=== PATIENT | female | born 1960 | race Caucasian/White ===

== ENCOUNTER → 2017-05-05 | Outpatient (CLI) | payer BC, OTHER ==
--- NOTE | 2017-05-05 12:52 | RAD ---
DATE: 05/05/2017 EXAM: BREAST LEFT, MAMMO LAYO DIAG LT HISTORY: 6 month follow-up of nodule in left breast. COMPARISON: 11/07/2016 and 11/03/2016 This study was interpreted with the benefit of Computerized Aided Detection (CAD). The left breast parenchyma is heterogeneously dense, which could reduce sensitivity of mammography. Breast parenchyma level C. FINDINGS: Digital MLO and CC is seen along with true lateral and two exaggerated craniocaudal digital mammograms of the left breast were obtained. Additionally digital breast tomosynthesis images of the left breast in the MLO and CC projections were performed. Comparison studies are dated 11/03/2016 and 11/07/2016. The small nodular density within the posterior aspect of the left breast seen on previous examinations is not visualized on today's study. An oval-shaped nodule is seen within the posterior central aspect the left breast. This does not appear significantly changed. A real-time ultrasound examination of the of the left breast at the 11:00 position and within the posterior aspect of the upper quadrant of the left breast was performed. Multiple images were obtained. Comparison is made to the patient's diagnostic mammogram performed earlier today. Additional comparison is made to patient's previous left breast ultrasound dated 10/28/2016. Within the left breast at the 11:00 position and oval-shaped anechoic structure is seen which measures 8 mm in greatest diameter.. It is consistent with a simple cyst and corresponds to the nodule seen on the patient's mammogram from earlier today. It has increased in size slightly since the previous examination where it measured 6 mm in greatest diameter. No additional abnormality is seen within the visualized portions of the left breast. I would recharacterize the patient's mammograms as a BI-RADS Category 2 benign findings with a recommendation for routine yearly screening mammography for follow-up. IMPRESSION: BI-RADS Category 2 benign findings. There is no mammographic evidence of malignancy. Routine yearly screening mammography is recommended for follow-up. BI-RADS CATEGORY: 2 BENIGN FINDING(S) RECOMMENDED FOLLOW-UP: 12M 12 MONTH FOLLOW-UP PQRS compliance statement: Patient information was entered into a reminder system with a target due date 11/03/2017 for the next mammogram. Mammography is a sensitive method for finding small breast cancers, but it does not detect them all and is not a substitute for careful clinical examination. A negative mammogram does not negate a clinically suspicious finding and should not result in delay in biopsying a clinically suspicious abnormality. "Our facility is accredited by the [employer] Mammography Program."
== END | disposition home or self-care (01) ==
LOC: MAMMO 09:04
PROVIDERS: ATTEND Nurse Practitioner
DX: N63 Unspecified lump in breast (principal)
CPT/HCPCS: 76641; G0206; G0279; 77061; 77065

== ENCOUNTER → 2018-05-18 | Outpatient (CLI) | payer OTHER ==
--- NOTE | 2018-05-18 11:00 | RAD ---
DATE: 05/18/2018 EXAM: DIGITAL SCREEN BILAT W/CAD HISTORY: Routine screening COMPARISON: 05/05/2017, 11/03/2016 This study was interpreted with the benefit of Computerized Aided Detection (CAD). The breast parenchyma is heterogeneously dense, which could reduce sensitivity of mammography. Breast parenchyma level C. FINDINGS: No new or enlarging breast densities are seen. Benign type calcifications are present. No suspicious microcalcifications have developed. IMPRESSION: Stable mammograms without evidence of malignancy. BI-RADS CATEGORY: 2 BENIGN FINDING(S) RECOMMENDED FOLLOW-UP: 12M 12 MONTH FOLLOW-UP PQRS compliance statement: Patient information was entered into a reminder system with a target due date for the next mammogram. Mammography is a sensitive method for finding small breast cancers, but it does not detect them all and is not a substitute for careful clinical examination. A negative mammogram does not negate a clinically suspicious finding and should not result in delay in biopsying a clinically suspicious abnormality. "Our facility is accredited by the [employer] Mammography Program."
== END | disposition home or self-care (01) ==
LOC: MAMMO 09:17
DX: Z12.31 Encounter for screening mammogram for malignant neoplasm of breast (principal)
CPT/HCPCS: 77067

== ENCOUNTER → 2021-02-04 | Outpatient (CLI) | payer OTHER ==
--- NOTE | 2021-02-04 12:27 | RAD ---
DATE: February 04, 2021 EXAM: DIGITAL SCREEN BILAT W/CAD HISTORY: Screening study. COMPARISON: 2018 This study was interpreted with the benefit of Computerized Aided Detection (CAD). FINDINGS: Breast Density: HETERO The breast parenchyma is heterogenously dense, which could reduce sensitivity of mammography. Breast parenchyma level C.. There are no dominant suspicious masses, suspicious microcalcifications or evidence of architectural distortion. Nodule of the lateral aspect of the right breast anteriorly is stable. IMPRESSION: No mammographic indicators for malignancy. BI-RADS CATEGORY: 2 BENIGN FINDING RECOMMENDED FOLLOW-UP: 12M 12 MONTH FOLLOW-UP PQRS compliance statement: Patient information was entered into a reminder system with a target due date February 05, 2022 for the next mammogram. Mammography is a sensitive method for finding small breast cancers, but it does not detect them all and is not a substitute for careful clinical examination. A negative mammogram does not negate a clinically suspicious finding and should not result in delay in biopsying a clinically suspicious abnormality. "Our facility is accredited by the [employer] Mammography [employer]." The patient's breast density may affect the ability of mammography to detect breast cancer. There are 4 categories of breast density, A, B, C and D. Breast density A means that most of the breast tissue is replaced with adipose tissue and therefore is not dense. Breast density B means that the breast tissue is mildly dense and scattered. Breast density C means that the breast tissue is heterogeneously dense. Breast density D means that the breast tissue is very dense. Breast densities especially C and D may decrease the sensitivity of mammography to detect breast cancer. Therefore, the patient may benefit from 3-D breast mammography (3D breast tomography) as a part of their screening mammogram. Insurance may or may not pay for this additional imaging. The patient's breast density based on today's mammogram is category C.
== END ==
LOC: MAMMO 10:31
PROVIDERS: ATTEND Nurse Practitioner Family
DX: Z12.31 Encounter for screening mammogram for malignant neoplasm of breast (principal)
CPT/HCPCS: 77067

== ENCOUNTER 2021-04-05 12:34 | Emergency (ER) | payer BC, OTHER ==
[~2021-04-05] VITALS: Ht 165.1 cm; Wt 110.3 kg
--- NOTE | 2021-04-05 13:05 | EKG ---
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
--- NOTE | 2021-04-05 13:11 | RAD ---
EXAM: Chest, single view. HISTORY: Chest pain. COMPARISON: None. FINDINGS: A frontal view of the chest is obtained. There is no infiltrate, pleural effusion or pneumo thorax. There is a prominent cardiac silhouette. IMPRESSION: No acute pulmonary finding. Electronically signed by: Bella Mukherjee MD (04/05/2021 1:09 PM) [id number]
[2021-04-05 13:31] LABS: BASO % 1 % (0-3); EOS # 0.2 x10^3/uL (0.0-0.7); EOS % 4 % (0-3); HEMATOCRIT 40.6 % (36.0-47.0); HEMOGLOBIN 13.5 g/dL (12.0-15.5); LYMPH # 2.2 x10^3/uL (1.0-4.8); LYMPH % 38 % (24-48); MEAN CORPUSCULAR HEMOGLOBIN 29 pg (25-35); MEAN CORPUSCULAR HGB CONC 33 g/dL (31-37); MEAN CORPUSCULAR VOLUME 87 fL (79-100); MONO # 0.4 x10^3/uL (0.0-1.1); MONO % 6 % (0-9); NEUT # 2.9 x10^3uL (1.8-7.7); NEUT % 51 % (31-73); PLATELET COUNT 300 x10^3/uL (140-400); RED BLOOD COUNT 4.65 x10^6/uL (3.50-5.40); RED CELL DISTRIBUTION WIDTH 14.7 % (11.5-14.5); WHITE BLOOD COUNT 5.7 x10^3/uL (4.0-11.0)
[2021-04-05 13:44] LABS: CALCIUM 8.6 mg/dL (8.5-10.1); CREATININE 0.8 mg/dL (0.6-1.0); GFR 73.7; POTASSIUM 4.2 mmol/L (3.5-5.1)
[2021-04-05 13:54] LABS: BILIRUBIN,URINE NEG (NEG); CLARITY,URINE CLEAR; COLOR,URINE STRAW; GLUCOSE,URINE NEG (NEG); NITRITE,URINE NEG (NEG); UROBILINOGEN,URINE 0.2 mg/dL (0.2 mg/dL)
[2021-04-05 13:55] LABS: BACTERIA,URINE 0 /HPF (0-FEW); RBC,URINE RARE /HPF (0-2); WBC,URINE 0 /HPF (0-4)
[2021-04-05 13:57] LABS: ALBUMIN 3.4 g/dL (3.4-5.0); ALBUMIN/GLOBULIN RATIO 1.1 (1.0-1.7); TOTAL BILIRUBIN 0.2 mg/dL (0.2-1.0); TOTAL PROTEIN 6.4 g/dL (6.4-8.2)
[2021-04-05] MEDS ORDERED: PROCHLORPERAZINE 10 MG/2 ML VIAL. IV ONE (14:00)
[2021-04-05] MEDS ORDERED: DEXAMETHASONE SOD PHOS 10 MG/ML VIAL. IVP ONE (14:00)
[2021-04-05] MEDS ORDERED: diphenhydrAMINE HCL 25 MG CAPSULE PO ONE (14:00)
[2021-04-05] MEDS ORDERED: IV NORMAL SALINE 1,000ML 1,000 ML IV ONE (14:00)
--- NOTE | 2021-04-05 14:09 | RAD ---
Exam performed: CT scan of the head without contrast. Date of Service: 04/05/2021. Comparison: None available. Clinical History: Headache and blurred vision. Technique: Helical acquisitions are obtained from the foramen magnum to the vertex without intravenou s administration of contrast. Findings: The ventricles are midline without evidence of dilatation. Normal casillas-white differentiation is maint ained. There is no extra axial fluid collection, intraparenchymal hemorrhage or mass lesion. The vi sualized portions of the orbits, paranasal sinuses and the mastoid air cells appear clear. The travis rium is intact. Impression: 1. No acute intracranial process detected. PQRS Compliance Statement: One or more of the following individualized dose reduction techniques were utilized for this examinat ion: 1. Automated exposure control 2. Adjustment of the mA and/or kV according to patient size 3. Use of iterative reconstruction technique Electronically signed by: Sumaya Aiken MD (04/05/2021 2:07 PM) [facility]
[2021-04-05 15:05] VITALS: BP 147/83
--- NOTE | 2021-04-05 15:28 | PHYS DOC ---
Past History Past Surgical History: Appendectomy, Cholecystectomy, , Hysterectomy Additional Smoking Information: 1/2 PACK/DAY Alcohol Use: None Adult General Chief Complaint Chief Complaint: CHEST PAIN HPI HPI Patient is a 60-year-old female who presents to the emergency room concerned about headache. Patient states that she started getting some blurred vision earlier today. She then had some butterfly feelings in her chest with some chest tightness. She denies any shortness of breath or chest pain with this episode. She denies any current nausea or vomiting. She does not have any syncope. She states that she now has a headache behind her left eye that radiates to the back of her head. She has some lightheadedness. She does have a history of migraines but states this does feel different. She denies any difficulty with walking. She tried to see her primary care physician who sent her here. Review of Systems Review of Systems Complete ROS is negative unless otherwise documented in HPI Current Medications Current Medications Current Medications Medications (Trade) Dose Ordered Sig/Rakesh Start Time Stop Time Status Last Admin Dose Admin Dexamethasone Sodium Phosphate (Decadron) 10 mg 1X ONCE 04/05/21 14:00 04/05/21 14:01 DC 04/05/21 14:04 10 MG Diphenhydramine HCl (Benadryl) 25 mg 1X ONCE 04/05/21 14:00 04/05/21 14:01 DC 04/05/21 14:08 25 MG Prochlorperazine Edisylate (Compazine) 10 mg 1X ONCE 04/05/21 14:00 04/05/21 14:01 DC 04/05/21 14:07 10 MG Sodium Chloride 1,000 ml @ 1,000 mls/hr 1X ONCE 04/05/21 14:00 04/05/21 14:59 DC 04/05/21 14:02 1,000 MLS/HR Allergies Allergies Allergies Coded Allergies Type Severity Reaction Last Updated Verified Latex, Natural Rubber Allergy Unknown 04/05/21 Yes erythromycin base Allergy Unknown 04/05/21 Yes Physical Exam Physical Exam General: Awake, alert, NAD. Well Nourished, well hydrated. Cooperative HEENT: Atraumatic, EOMI, PERRL, airway patent, moist oral mucosa Neck: Supple, trachea midline Respiratory: CTA bilaterally, normal effort, no wheezing/crackles CV: RRR, no murmur, cap refill <2 GI: Soft, nondistended, nontender, no masses MSK: No obvious deformities Skin: Warm, dry, intact Neuro: A&O x3, speech NL, 5/5 strength in BUE/BLE distally and proximally, CN 2- 12 intact, cerebellar testing normal Psych: Normal affect, normal mood, not suicidal or homicidal Current Patient Data Vital Signs Vital Signs Date Time Temp Pulse Resp B/P (MAP) Pulse Ox O2 Delivery O2 Flow Rate FiO2 04/05/21 13:38 77 20 128/77 (94) 94 Room Air 04/05/21 12:35 98.6 Lab Results Laboratory Tests Test 04/05/21 13:05 04/05/21 13:25 White Blood Count 5.7 x10^3/uL (4.0-11.0) Red Blood Count 4.65 x10^6/uL (3.50-5.40) Hemoglobin 13.5 g/dL (12.0-15.5) Hematocrit 40.6 % (36.0-47.0) Mean Corpuscular Volume 87 fL (79-100) Mean Corpuscular Hemoglobin 29 pg (25-35) Mean Corpuscular Hemoglobin Concent 33 g/dL (31-37) Red Cell Distribution Width 14.7 % (11.5-14.5) H Platelet Count 300 x10^3/uL (140-400) Neutrophils (%) (Auto) 51 % (31-73) Lymphocytes (%) (Auto) 38 % (24-48) Monocytes (%) (Auto) 6 % (0-9) Eosinophils (%) (Auto) 4 % (0-3) H Basophils (%) (Auto) 1 % (0-3) Neutrophils # (Auto) 2.9 x10^3uL (1.8-7.7) Lymphocytes # (Auto) 2.2 x10^3/uL (1.0-4.8) Monocytes # (Auto) 0.4 x10^3/uL (0.0-1.1) Eosinophils # (Auto) 0.2 x10^3/uL (0.0-0.7) Basophils # (Auto) 0.0 x10^3/uL (0.0-0.2) Sodium Level 142 mmol/L (136-145) Potassium Level 4.2 mmol/L (3.5-5.1) Chloride Level 106 mmol/L (98-107) Carbon Dioxide Level 26 mmol/L (21-32) Anion Gap 10 (6-14) Blood Urea Nitrogen 9 mg/dL (7-20) Creatinine 0.8 mg/dL (0.6-1.0) Estimated GFR (Cockcroft-Gault) 73.7 BUN/Creatinine Ratio 11 (6-20) Glucose Level 168 mg/dL (70-99) H Calcium Level 8.6 mg/dL (8.5-10.1) Total Bilirubin 0.2 mg/dL (0.2-1.0) Aspartate Amino Transferase (AST) 20 U/L (15-37) Alanine Aminotransferase (ALT) 35 U/L (14-59) Alkaline Phosphatase 132 U/L (46-116) H Troponin I Quantitative < 0.017 ng/mL (0-0.055) Total Protein 6.4 g/dL (6.4-8.2) Albumin 3.4 g/dL (3.4-5.0) Albumin/Globulin Ratio 1.1 (1.0-1.7) Urine Collection Type Unknown Urine Color Straw Urine Clarity Clear Urine pH 5.5 Urine Specific [place] <=1.005 Urine Protein Neg (NEG-TRACE) Urine Glucose (UA) Neg mg/dL (NEG) Urine Ketones (Stick) Neg mg/dL (NEG) Urine Blood Trace (NEG) Urine Nitrite Neg (NEG) Urine Bilirubin Neg (NEG) Urine Urobilinogen Dipstick 0.2 mg/dL (0.2 mg/dL) Urine Leukocyte Esterase Neg (NEG) Urine RBC Rare /HPF (0-2) Urine WBC 0 /HPF (0-4) Urine Bacteria 0 /HPF (0-FEW) EKG EKG [] Radiology/Procedures Radiology/Procedures [] Heart Score C/O Chest Pain: N/A Risk Factors: Risk Factors: DM, Current or recent (<one month) smoker, HTN, HLP, family history of CAD, obesity. Risk Scores: Risk Factors: DM, Current or recent (<one month) smoker, HTN, HLP, family history of CAD, obesity. Course & Med Decision Making Course & Med Decision Making Pertinent Labs and Imaging studies reviewed. (See chart for details) Patient is a 60-year-old female presents to the emergency room with multiple concerns. Patient symptoms are most consistent with an atypical migraine. She has had blurred vision and migraines in the past. We will treat her symptomatically. Work-up will also be done to rule out any signs of arrhythmia or ischemia. EKG is unremarkable. Lab work is normal. Chest x-ray is normal. Patient feels completely back to normal after migraine cocktail. Patient's test results and vitals while in the ED were fully reviewed and discussed with the patient. Patient is stable and at this time does not need admission to the hospital. We have discussed strict return precautions and the importance of following up with their Primary Care Physician. Patient stated understanding and was given an opportunity to ask any questions. Patient is in agreement with plan. Dragon Disclaimer Dragon Disclaimer This electronic medical record was generated, in whole or in part, using a voice recognition dictation system. Departure Departure: Impression: Primary Impression: Migraine Additional Impression: Palpitations Disposition: HOME / SELF CARE / HOMELESS Condition: STABLE Referrals: DAYTON CANTRELL [employer]ET[facility] SPECIALIST (PCP) Patient Instructions: Migraine Headache Problem Qualifiers JAYDON MOLINA MD Apr 05, 2021 15:28
== END 2021-04-05 15:30 | disposition home or self-care (01) ==
LOC: ER 12:34
DX: G43.909 Migraine, unspecified, not intractable, without status migrainosus (principal); R00.2 Palpitations; R07.89 Other chest pain; R42 Dizziness and giddiness; F17.200 Nicotine dependence, unspecified, uncomplicated; Z91.040 Latex allergy status; Z88.1 Allergy status to other antibiotic agents
CPT/HCPCS: 36415; 70450; 71045; 80053; 81001; 84484; 85025; 93005; 96361; 96374; 96375; 99285; J0780; J1100; J7030; Q0163

== ENCOUNTER 2021-04-09 09:42 | Emergency (ER) | payer BC ==
[~2021-04-09] VITALS: Ht 165.1 cm; Wt 103.2 kg
[2021-04-09] MEDS ORDERED: IV NORMAL SALINE 1,000ML 1,000 ML IV ONE (10:00)
--- NOTE | 2021-04-09 10:06 | PHYS DOC ---
Past History Additional Past Medical Histor: TBI; "deep brain seizures" Past Surgical History: Appendectomy, Cholecystectomy, , Hysterectomy, Oophorectomy Alcohol Use: None General Adult EDM: Chief Complaint: DIZZY/LIGHT HEADED HPI: HPI: 60-year-old female presents with dizziness. The patient was seen in the emergency room a couple days ago with a similar episode. She was sitting at work working in her monitor when she started having blurry vision followed by a stabbing headache of moderate to severe intensity in the middle of the top of her head. The patient has a history of headaches due to TBI. She is treated with migraine pain medications but this is for deep brain seizures. She was taken off seizure medicine about 10 years ago. Prior to these most recent 2 episodes she has not had a headache like this in a long time. She denies nausea or vomiting. She has some left-sided abdominal pain. She has irritable bowel syndrome so she goes between diarrhea and constipation frequently. No big changes in this regard. Prior to her dizziness today, she was feeling fine. She did not have any other symptoms until the vision change. Review of Systems: Review of Systems: Constitutional: Denies fever or chills Eyes: Blurry vision HENT: Denies nasal congestion or sore throat Respiratory: Denies cough or shortness of breath Cardiovascular: Denies chest pain or edema GI: Denies abdominal pain, nausea, vomiting, bloody stools or diarrhea : Denies dysuria Musculoskeletal: Denies back pain or joint pain Integument: Denies rash Neurologic: Headache. Denies focal weakness or sensory changes Endocrine: Denies polyuria or polydipsia Lymphatic: Denies swollen glands Psychiatric: Denies depression or anxiety Current Medications: Current Meds: Current Medications Medications (Trade) Dose Ordered Sig/Rakesh Start Time Stop Time Status Last Admin Dose Admin Sodium Chloride 1,000 ml @ 1,000 mls/hr 1X ONCE 04/09/21 10:00 04/09/21 10:59 Allergies: Allergies: Allergies Coded Allergies Type Severity Reaction Last Updated Verified Latex, Natural Rubber Allergy Unknown 04/05/21 Yes erythromycin base Allergy Unknown 04/05/21 Yes Physical Exam: PE: Constitutional: Well developed, well nourished, obese, no acute distress, non- toxic appearance. [] HENT: Normocephalic, atraumatic, bilateral external ears normal, oropharynx mois t, no oral exudates, nose normal.[] Eyes: PERRLA, EOMI, conjunctiva normal, no discharge. Photophobic. [] Neck: Normal range of motion, no tenderness, supple, no stridor. [] Cardiovascular: Heart rate regular rhythm, no murmur [] Lungs & Thorax: Bilateral breath sounds clear to auscultation [] Abdomen: Bowel sounds normal, soft, mild left-sided tenderness, no masses, no pulsatile masses. [] Skin: Warm, dry, no erythema, no rash. [] Back: No tenderness, no CVA tenderness. [] Extremities: No tenderness, no cyanosis, no clubbing, ROM intact, no edema. [] Neurologic: Alert and oriented X 3, normal motor function, normal sensory function, no focal deficits noted. [] Psychologic: Affect normal, judgement normal, mood normal. [] Current Patient Data: Vital Signs: Vital Signs Date Time Temp Pulse Resp B/P (MAP) Pulse Ox O2 Delivery O2 Flow Rate FiO2 04/09/21 09:49 97.9 54 27 129/65 95 Room Air EKG: EKG: Sinus rhythm, rate 58, normal axis, no ST elevation or depression. [] Radiology/Procedures: Radiology/Procedures: [] Heart Score: C/O Chest Pain: N/A Risk Factors: Risk Factors: DM, Current or recent (<one month) smoker, HTN, HLP, family history of CAD, obesity. Risk Scores: Score 0 - 3: 2.5% MACE over next 6 weeks - Discharge Home Score 4 - 6: 20.3% MACE over next 6 weeks - Admit for Clinical Observation Score 7 - 10: 72.7% MACE over next 6 weeks - Early Invasive Strategies Course & Med Decision Making: Course & Med Decision Making Pertinent Labs and Imaging studies reviewed. (See chart for details) The patient's labs are unremarkable. She had a head CT 4 days ago so I don't believe a repeat is necessary. She has had no new trauma. I have given her a liter normal saline, 30 mg of Toradol, 25 mg of Benadryl, and 10 mg of Reglan for her headache. I have also given 10 mg of Decadron. After period of rest, the patient is feeling significantly better at this time. Her EKG is unremarkable. Her labs are unremarkable. Normal why she is having exacerbation of her headaches. I have advised that she consider following up with neurology, especially if these episodes continue to occur. She is stable for discharge at this time. [] Zuri Disclaimer: Zuri Disclaimer: This electronic medical record was generated, in whole or in part, using a voice recognition dictation system. Departure Departure: Impression: Primary Impression: Migraine headache Qualified Codes: G43.109 - Migraine with aura, not intractable, without status migrainosus Disposition: 01 HOME / SELF CARE / HOMELESS Condition: IMPROVED Referrals: FEDERICO GALLOWAY MD (PCP) Patient Instructions: Migraine Headache, Dano-fu-Osiw JENNIFER GONZALES DO Apr 09, 2021 10:06
[2021-04-09] MEDS ORDERED: DEXAMETHASONE SOD PHOS 10 MG/ML VIAL. IVP ONE (10:15)
[2021-04-09] MEDS ORDERED: KETOROLAC 30 MG/ML VIAL. IVP ONE (10:15)
[2021-04-09] MEDS ORDERED: diphenhydrAMINE 50 MG/ML VIAL IVP ONE (10:15)
[2021-04-09] MEDS ORDERED: METOCLOPRAMIDE HCL 10 MG/2 ML VIAL. IVP ONE (10:15)
[2021-04-09 10:21] LABS: BASO % 0 % (0-3); EOS # 0.2 x10^3/uL (0.0-0.7); EOS % 3 % (0-3); HEMATOCRIT 41.3 % (36.0-47.0); HEMOGLOBIN 13.8 g/dL (12.0-15.5); LYMPH # 3.1 x10^3/uL (1.0-4.8); LYMPH % 32 % (24-48); MEAN CORPUSCULAR HEMOGLOBIN 29 pg (25-35); MEAN CORPUSCULAR HGB CONC 33 g/dL (31-37); MEAN CORPUSCULAR VOLUME 87 fL (79-100); MONO # 0.7 x10^3/uL (0.0-1.1); MONO % 7 % (0-9); NEUT # 5.6 x10^3uL (1.8-7.7); NEUT % 58 % (31-73); PLATELET COUNT 330 x10^3/uL (140-400); RED BLOOD COUNT 4.75 x10^6/uL (3.50-5.40); RED CELL DISTRIBUTION WIDTH 14.6 % (11.5-14.5); WHITE BLOOD COUNT 9.7 x10^3/uL (4.0-11.0)
[2021-04-09 10:27] LABS: CALCIUM 9.2 mg/dL (8.5-10.1); CREATININE 0.9 mg/dL (0.6-1.0); GFR 64.3; POTASSIUM 4.6 mmol/L (3.5-5.1)
[2021-04-09 10:33] LABS: ALBUMIN 3.5 g/dL (3.4-5.0); ALBUMIN/GLOBULIN RATIO 1.1 (1.0-1.7); TOTAL BILIRUBIN 0.3 mg/dL (0.2-1.0); TOTAL PROTEIN 6.6 g/dL (6.4-8.2)
--- NOTE | 2021-04-09 10:41 | RAD ---
EXAMINATION: XR CHEST 1V CLINICAL HISTORY: Dizziness TECHNIQUE: XR CHEST 1V COMPARISON: 04/05/2021 FINDINGS/ IMPRESSION: No definitive evidence of acute cardiopulmonary abnormality or significant interval change. Hazy opacity in the left mid to lower lung zone favors soft tissue attenuation. No definite focal air space consolidation, pleural effusion, or pneumothorax. Stable heart size. Degenerative changes in th e thoracic spine. Electronically signed by: Rick Salazar DO (04/09/2021 10:39 AM) [id number]
--- NOTE | 2021-04-09 11:35 | EKG ---
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
[2021-04-09 12:32] LABS: BILIRUBIN,URINE NEG (NEG); CLARITY,URINE CLEAR; COLOR,URINE YELLOW; GLUCOSE,URINE NEG (NEG); NITRITE,URINE NEG (NEG); UROBILINOGEN,URINE 0.2 mg/dL (0.2 mg/dL)
[2021-04-09 12:43] LABS: RBC,URINE RARE /HPF (0-2); WBC,URINE OCC /HPF (0-4)
[2021-04-09 12:44] LABS: BACTERIA,URINE FEW /HPF (0-FEW); SQUAMOUS EPITHELIAL CELL,UR OCC /LPF
[2021-04-09 13:11] VITALS: BP 139/63
== END 2021-04-09 13:11 | disposition home or self-care (01) ==
LOC: ER 09:42
DX: G43.109 Migraine with aura, not intractable, without status migrainosus (principal); Z87.820 Personal history of traumatic brain injury; Z88.1 Allergy status to other antibiotic agents; Z91.040 Latex allergy status
CPT/HCPCS: 36415; 71045; 80053; 81001; 84484; 85025; 93005; 96361; 96374; 96375; 99285; J1100; J1200; J1885; J2765; J7030

== ENCOUNTER → 2022-01-24 | Outpatient (CLI) | payer OTHER ==
--- NOTE | 2022-01-24 16:47 | RAD ---
DATE: 01/24/2022 EXAM: US BREAST LT, MG DIGITAL BILAT DIAGNOSTIC MAMMO WITH LAYO HISTORY: Lump and tenderness felt by patient in the left axilla. Nodule felt by the provider at 2-3 o 'clock in the left breast. COMPARISON: 01/25/2021 and 05/18/2018 Breast Density: HETERO The breast parenchyma is heterogenously dense, which could reduce sensitivity of mammography. Breast parenchyma level C. FINDINGS: There is no suspicious mass, architectural distortion, or suspicious calcifications in eith er breast. Focused ultrasound of the left breast was performed at 2-3 o'clock and in the left axilla in the area s of concern. At 2:00 8 cm the nipple, there is an ovoid hypoechoic mass measuring 6 x 4 x 3 mm. This has circumscribed margins and posterior acoustic enhancement. No internal vascularity. This is withi n an area of dense tissue. There is a normal lymph node with thickened cortex of the left axilla. No suspicious lymphadenopathy. IMPRESSION: 1. Probably benign 6 mm mass at 2:00 8 cm from the nipple in the left breast. No abnormality in the l eft axilla. Recommend follow-up ultrasound of the probably benign left breast mass in 6 months. BI-RADS CATEGORY: 3 PROBABLY BENIGN FINDING(S)-SHORT INTERVAL FOLLOW-UP SUGGESTED RECOMMENDED FOLLOW-UP: 6M 6 MONTH FOLLOW-UP PQRS compliance statement: Patient information was entered into a reminder system with a target due d ate for the next mammogram. Mammography is a sensitive method for finding small breast cancers, but it does not detect them all a nd is not a substitute for careful clinical examination. A negative mammogram does not negate a clin ically suspicious finding and should not result in delay in biopsying a clinically suspicious abnorma lity. "Our facility is accredited by the [employer] Mammography Program." Electronically signed by: Mary Lou Durand MD (01/24/2022 4:45 PM) [id number]
== END ==
LOC: MAMMO 13:37
PROVIDERS: ATTEND Nurse Practitioner Family
DX: N63.20 Unspecified lump in the left breast, unspecified quadrant (principal)
CPT/HCPCS: 76641; 77066; G0279; 77062